=== PATIENT | male | born 1950 | race Caucasian/White ===

== ENCOUNTER → 2022-11-17 11:44 | Outpatient (CLI) | payer MEDICARE, OTHER, SELFPAY ==
[2022-11-17 13:32] LABS: Appearance Urine UA SL CLOUDY; Bilirubin Urine UA NEGATIVE (NEGATIVE); Color Urine UA YELLOW; Glucose Urine UA NEGATIVE (Negative); Ketones Urine UA TRACE (NEGATIVE); Leukocyte Esterase Urine UA 2+ (NEGATIVE); Nitrite Urine UA NEGATIVE (Negative); Occult Blood Urine UA 1+ (Negative); Protein Urine UA NEGATIVE (Negative); Urobilinogen Urine UA 0.2 E.U./dL (0.2)
[2022-11-17 13:49] LABS: Bacteria Urine Few (2-10); Culture Indicated Urine Specimen Cultured; RBC Urine 0-1/HPF (0-5/HPF); Squamous Epithelial Cell Urine 0-1 /HPF (0-5/HPF); WBC Urine >100/HPF (0-5/HPF)
[2022-11-17 14:38] LABS: Add Manual Diff / Slide Review NO; Basophils Absolute Auto 0 /uL (0-100); Basophils Percent Auto 0.9 % (0-2); Eosinophils Absolute Auto 100 /uL (0-450); Eosinophils Percent Auto 3.1 % (2-4); Hematocrit 38.9 % (41-53); Hemoglobin 13.5 g/dL (13.5-17.5); Lymphocytes Absolute Auto 900 /uL (1100-4500); Lymphocytes Percent Auto 24.3 % (25-40); Mean Corpuscular HGB Conc 34.7 % (30-36); Mean Corpuscular Volume 100.9 fL (80-100); Monocytes Absolute Auto 500 /uL (0-900); Monocytes Percent Auto 13.4 % (3-14); Neutrophils Absolute Auto 2100 /uL (1500-7000); Neutrophils Percent Auto 58.3 % (50-75); Platelet Count 145 X10^3/uL (150-400); Red Blood Cell Count 3.86 X10^6/uL (4.5-5.9); White Blood Cell Count 3.6 X10^3/uL (4.5-11.0)
[2022-11-17 14:58] LABS: Alanine Aminotransferase 20 IU/L (<50); Albumin 4.1 g/dL (3.5-5.0); Albumin Globulin Ratio 1.9 (1.0-2.8); Alkaline Phosphatase 56 U/L (38-126); Aspartate Aminotransferase 29 IU/L (17-59); BUN Creatinine Ratio 19.4 (6-22); Bilirubin Total 0.7 mg/dL (0.2-1.3); Blood Urea Nitrogen 24 mg/dL (9-20); Calcium 9.6 mg/dL (8.4-10.2); Carbon Dioxide 23 mmol/L (22-32); Chloride 105 mmol/L (98-107); Estimated Glomerular Filt Rate > 60 mL/min (>60); Globulin 2.2 g/dL (1.7-4.1); Glucose 81 mg/dL (80-110); HEMOLYSIS < 15 (0-50); Potassium 4.2 mmol/L (3.4-5.1); Sodium 137 mmol/L (137-145); Total Protein 6.3 g/dL (6.3-8.2)
[2022-11-17 16:17] LABS: Erythrocyte Sedimentation Rate 7 MM/HR (0-15)
[2022-11-18 07:43] LABS: Labcorp Hemoglobin (Hb) A1c 4.9 % (4.8-5.6)
== END ==
PROVIDERS: PCP Internal Medicine Hematology & Oncology; Referring Provider Orthopaedic Surgery; Visit Provider Orthopaedic Surgery
DX: Z01.818 Encounter for other preprocedural examination (principal); R73.9 Hyperglycemia, unspecified; Z01.812 Encounter for preprocedural laboratory examination; N39.0 Urinary tract infection, site not specified; C83.18 Mantle cell lymphoma, lymph nodes of multiple sites
CPT/HCPCS: 36415; 80053; 81001; 83036; 85025; 85651; 87086; 93005

== ENCOUNTER 2022-12-09 06:31 | Day surgery (SDC) | payer MEDICARE, OTHER, SELFPAY ==
[2022-11-25 08:26] VITALS: BMI 30.7
[2022-12-09] VITALS (11 sets, daily range): BP systolic 106–153; BP diastolic 63–97; PULSE 55–99; RESP 12–18; TEMP 35.9–36.1; O2SAT 95–99; BMI 30.7
--- NOTE | 2022-12-09 | PATH_ITS ---
[facility] Accession Number: [id number] No. of containers..01 Tissue . 01 Material submitted: . femur - RIGHT FEMUR . 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 - Fatty marrow with scant hematopoetic elements (see comment). MRV 12/14/2022 1613 Local . 01 Comment: The hematopoietic elements show a decreased myeloid/erythroid ratio, which may be related to anemia or hemorrhage. This case is also reviewed by hematopathologist, Dr. Luli Jack, who concurs with the given interpretation. . 01 Electronically signed: . Donna Shirley MD, Pathologist NPI- [id number] . 01 Gross description: . The specimen is received in formalin labeled with the patient's name, , and RT femur and consists of multiple fragments of elizalde friable osseous tissue, aggregating to 2.9 x 2.8 x 0.9 cm. Filtered and submitted entirely in cassettes A1-A3, following decalcification in Immunocal. ([id number]) /[facility] 12/10/2022 1544 Local . 01 Pathologist provided ICD-10: M87.051 . 01 CPT . 506777, [id number] Specimen Comment: A courtesy copy of this report has been sent to [phone] Performed at: 01 [facility], [facility] [address] [place] [address], [employer], [place] [id number] MD Marty Bucio MD Phone: [phone]
--- NOTE | 2022-12-09 06:00 | DI.RAD.S_ITS ---
PROCEDURE: XR HIP W PEL IF DONE RT 2V INDICATIONS: inner op TECHNIQUE: 2 views of the hip were acquired. COMPARISON: None. FINDINGS: Fluoroscopic guidance a right total hip arthroplasty placement. IMPRESSION: Fluoroscopic guidance. Dictated by: Sterling Cochran M.D. on 12/09/2022 at 11:51 Approved by: Sterling Cohcran M.D. on 12/09/2022 at 11:51
[2022-12-09] MEDS: ACETAMINOPHEN 325 MG TABLET 975 MG PO (06:49)
[2022-12-09] MEDS: CELECOXIB 200 MG CAPSULE PO (06:50)
[2022-12-09] MEDS: VANCOMYCIN 1,000 MG/200 ML PIGGYBACK 200 MG IV (06:50)
[2022-12-09] MEDS: PREGABALIN 75 MG CAPSULE PO (06:50)
[2022-12-09] MEDS: LACTATED RINGERS 1,000 ML 42 ML IV ×2 (06:50→09:28)
--- NOTE | 2022-12-09 07:45 | P.OP_ITS ---
Operative Date/Time/Diagnoses Date of procedure: 12/09/22 Time of procedure: 08:20 Pre-op diagnosis: right hip AVN Post-op diagnosis: same Procedure & Clinicians Procedure: Right total hip arthroplasty anterior approach, biopsy right proximal femur Same procedure as scheduled: Yes Indications: The patient has had progressively worsening right hip pain with radiographic changes consistent with arthritis. Non-operative management has failed and the patient has requested total hip replacement. The risks, benefits and alternatives to surgery were discussed with the patient prior to proceeding. Risks discussed included, but were not limited to, failure to relieve pain, leg length discrepancy, dislocation, stiffness, infection, nerve damage, deep venous thrombosis, pulmonary embolism, stroke, coma, heart attack, permanent paralysis and , as well as the potential need for eventual revision of the prosthetic. Surgeon: Mariposa Shah Investor Relations Coordinator: Jennifer Dobbs Anesthesia Type: General and Spinal Operative Notes Findings: Severe right hip osteoarthritis, biopsy sent of intramedullary canal contents, soft bone in the femur Closure Type: primary Specimen(s): none sent Prosthetic devices, grafts, tissues, transplants, or devices: Shah and nephew R3 58, neutral poly liner,two 6.5 mm screws, size 6 polar stem with collar, 36 by +0 cobalt chromium head Estimated Blood Loss (mL): 250 Blood products transfused: none Procedure in detail: The patient was brought to the operating room. Patient was carefully positioned in the supine position. Time-out was performed and antibiotics were given. Anesthesia was induced. He was positioned in the on the table in order to allow hyperextension of the hip. The right lower extremity was prepped and draped in a standard sterile fashion. An anterior right hip incision was made 1 fingerbreadth lateral to the anterior superior iliac spine and extended distally towards the greater trochanter. Dissection was carried out through skin and subcutaneous tissues. Superficial hemostasis was achieved. The fascia over the tensor fascia zhang was defined and incised with a knife. Two Allis clamps were used to grasp the fascia. Tensor fascia zhang was retracted laterally. A gelpi retractor was placed. Dissection was carried out down along the neck. The circumflex vessels were carefully identified and cauterized with the Aqua Mantis. A PA was used throughout the procedure and was essential for intraoperative retraction and establishing appropriate hemostasis. They were used to help retract the femur in order to avoid injury to the proximal femur. There was good visualization of the femoral neck. A Cobra was placed superior to the neck and the gluteus fibers were carefully stripped from that superior aspect of the capsule. A 2nd retractor was placed along the inferior aspect of the neck. The rectus insertion along the capsule was partially released. A 3rd retractor that was then gently placed over the rim of the acetabulum under the rectus. Capsule was carefully incised and released from the intertrochanteric line circumferentially superior to the mid sagittal line and inferiorly to the mid sagittal line until the lesser trochanter was palpable. A tag stitch was placed both in the superior and inferior limb of the capsular insertion. Along the acetabulum capsule was also released up to the mid sagittal 12:00 position. A portion of the labrum was resected. A saw was used to perform an osteotomy at the level of the intertrochanteric line and the junction of the superior femoral neck leaving approximately 1 finger breath of residual inferior neck above the lesser trochanter. A 2nd cut was made along the femoral neck at the base of the head and a napkin ring of neck was removed. Corkscrew was placed in the femoral head and the head was removed without difficulty. Retractors were then repositioned around the acetabulum. Residual labrum was resected and additional osteophytes were removed. A reamer that was 4 mm below the templated size was placed by hand in the acetabulum and it was reamed to centralize the acetabulum. It was then reamed up to 2 under the templated size. I reamed 1 under the anticipated size. A trial cup was placed and noted that it was appropriately sized and fluoroscopy confirmed position and depth. The component was open and inserted without difficulty fluoroscopic imaging was used to confirm that the cup had been adequately seated and was well positioned. It was further stabilized with 2 screws. Neutral poly liner was placed. The cup was tested and noted to be stable. Attention was then directed to the femur. The femur was gently hyperextended additional capsular release was performed as needed in order to allow adequate visualization of the proximal femur with elevation of the femur. Patient was placed in a hyperextended slightly adducted position with maximum external rotation. Box osteotome was used to check for any residual neck as well as sclerotic bone along the trochanter. A biopsy was then taken of the intramedullary canal contents and sent for pathology. There was softening of the femoral canal tissue and the patient has a history of cancer and previous stem cell transplant. [place] pepper was placed in the femur. Additional broaching was performed. Canal finder was used to determine the alignment of the canal and position. Size 1 broach was placed. The canal was then appropriately broached up to the templated size as long as there was adequate stability of the broach and serial advancement of the broach without excessive impingement. Specific attention was directed at avoiding varus attempting to direct the distal aspect of the broach more anteriorly and avoiding excessive anteversion. Trial reduction showed acceptable range of motion, good stability, no posterior impingement, anabaptism of leg length and appropriate lateral shuck. I also hyperflexed the hip and checked that there was no impingement anteriorly and there was good stability with flexion, adduction and internal rotation. Marcaine and Exparel were injected. The stem was placed without difficulty. Repeat trial reduction and x-ray showed acceptable overall position, length, and no evidence of the femoral fracture. Final head was placed. Wound was meticulously irrigated with normal saline. The hip was reduced and additional Exparel and Marcaine were injected. The capsule was closed with interrupted nonabsorbable sutures. The fascia of the tensor was closed with interrupted and running Vicryl. No drain was placed. Any tensor fascia zhang muscle that appeared to be contused or injured which was a minimal amount was carefully resected. Capsule around the tensor was injected with Exparel and Marcaine. The skin was closed with barbed stitches for the subcutaneous tissue and skin. We also used surgical glue. The wound was dressed sterilely. Brief Betadine soak was also used and was meticulously irrigated with normal saline. Patient was transferred to recovery room in satisfactory condition. Complications: none Post-operative Condition: stable Disposition: Acute Care Plan for aftercare: The patient will be maintained on a standard total hip replacement protocol with weight bearing as tolerated and anterior hip precautions. The patient will receive Aspirin and sequential compression devices for DVT prophylaxis. The patient will be discharged home when safe for the home environment.
--- NOTE | 2022-12-09 07:45 | PM.PREOP ---
Pre-operative Note Interval Note History & Physical reviewed/Exam performed by Physician: Yes Changes to H&P: No
[2022-12-09] MEDS: CEFAZOLIN 2 GM/100 ML PREMIX 100 ML IV ×3 (08:10→23:42)
--- NOTE | 2022-12-09 08:36 | SUR.OPER ---
Patient supine on padded Randolph table, one arm on padded arm board at <90, other arm padded and secured with tape across patient's chest, both legs secured in padded traction boots and positioned per surgeon, padded post at patient's groin, pressure points checked and padded.
[2022-12-09] MEDS: BUPIVACAINE 0.25% (PF) 60 ML, EPINEPHrine 0.3 MG INJ (08:40)
[2022-12-09] MEDS: BUPIVACAINE LIPOSOME 266 MG/20 ML VIAL INJ (08:40)
[2022-12-09] MEDS: TRANEXAMIC ACID 1,000 MG VIAL 1000 MG INJ ×2 (08:41→10:48)
--- NOTE | 2022-12-09 11:30 | DI.RAD.S_ITS ---
PROCEDURE: XR HIP W PEL IF DONE RT 2V INDICATIONS: POST OP RIGHT ANTERIOR HIP TECHNIQUE: AP pelvis and lateral view of the right hip acquired. COMPARISON: [facility], [place], XR HIP W PEL IF DONE RT 2V, 12/09/2022, 9:41. FINDINGS: Bones: Patient is status post right hip arthroplasty, with hardware components in expected positions. The hip joint appears congruent. The visualized bony structures appear intact. Soft tissues: Overlying postoperative changes are noted. No suspicious soft tissue densities. IMPRESSION: Expected postoperative appearance of a right total hip arthroplasty. Dictated by: Sterling Cochran M.D. on 12/09/2022 at 11:58 Approved by: Sterling Cochran M.D. on 12/09/2022 at 11:58
[2022-12-09] MEDS: HYDROMORPHONE 2 MG INJ IV ×2 (11:45→11:54)
[2022-12-09] MEDS: ACETAMINOPHEN 325 MG TABLET 650 MG PO ×2 (13:21→18:13)
[2022-12-09] MEDS: IBUPROFEN 400 MG TABLET PO ×3 (13:21→20:09)
[2022-12-09] MEDS: LACTATED RINGERS 1,000 ML 100 ML IV (13:22)
--- NOTE | 2022-12-09 15:23 | PT-IP ANOTE ---
PT reviewed chart and checked on pt to initiate same day eval post-op anterior THR. PT awakens pt after clearing with nsg and pt states that he would like to wait until the morning before getting OOB/working with PT. Will con't efforts tomorrow morning.
[2022-12-09] MEDS: OXYCODONE IR 5 MG TABLET PO (16:46)
[2022-12-09] MEDS: DOCUSATE 100 MG CAPSULE PO (20:09)
[2022-12-09] MEDS: ASPIRIN EC 81 MG TABLET PO (20:09)
[2022-12-09] MEDS: PANTOPRAZOLE DR 40 MG TABLET PO (20:09)
[2022-12-09] MEDS: OXYCODONE IR 10 MG TABLET PO (23:39)
[2022-12-10] MEDS: ACETAMINOPHEN 325 MG TABLET 650 MG PO ×5 (00:02→23:47)
[2022-12-10] MEDS: IBUPROFEN 400 MG TABLET PO ×7 (00:03→23:47)
[2022-12-10 05:33] VITALS: BP 123/70; PULSE 62; RESP 20; TEMP 36.2; O2SAT 96
[2022-12-10 06:00] LABS: Hematocrit 32.2 % (41-53); Hemoglobin 11.4 g/dL (13.5-17.5)
[2022-12-10] MEDS: OXYCODONE IR 10 MG TABLET PO ×4 (06:06→23:47)
--- NOTE | 2022-12-10 07:24 | PM.PNPO.1 ---
Subjective Subjective Date Patient Seen: 12/10/22 Time Patient Seen: 07:25 Interval history: Pt sitting up in bed, c/o incisional pain. Has not been OOB yet, declined work w/ PT yesterday. Has 15 steps to get into his home and does not anticipate being able to discharge directly to home because of this. Eating and voiding without difficulty. Exam Vital Signs (past 8 hours): - 12/10/22 05:33 Temperature 97.2 F L Pulse Rate 62 Respiratory Rate 20 Blood Pressure 123/70 Pulse Oximetry 96 Oxygen Flow Rate 0 Oxygen Delivery Method Room Air Oxygen Flow Rate 0 Narrative Exam Narrative: 5/5 strength in hip flexors, quadriceps, hamstrings, DF, PF, EHL on right. Sensation to light touch intact throughout RLE. Calf soft, compressible, nontender. Aquacel dressing CDI. Objective Labs 12/10/22 05:25 Labs: Laboratory Results - last 24 hr 12/10/22 05:25 Hgb 11.4 L Hct 32.2 L PFSH Medical History (Updated 12/10/22 @ 07:26 by Jeanne Zafar PA-C) Anesthesia Atrial flutter BCC (basal cell carcinoma), chest Easy bruisability Enlarged prostate GERD (gastroesophageal reflux disease) History of COVID-19 (2021) HTN (hypertension) Implantable loop recorder present (2018) Non-Hodgkin lymphoma in remission (~2017) Surgical History (Updated 12/10/22 @ 07:26 by Jeanne Zafar PA-C) H/O vasectomy History of urologic surgery (08/23/22) Hx of arthroscopy of left knee Hx of arthroscopy of right knee 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 Continue multimodal pain control, ASA BID and SCDs for VTE prophylaxis. (2) Acute postoperative anemia due to expected blood loss: Assessment and Plan narrative: Asymptomatic at this time, no intervention necessary. Postoperative Procedures: Procedures Operation Date: 12/09/22 07:45 Actual Procedure Side Surgeon p Total Hip Arthroplasty/Anterior Approach Right Mariposa Shah MD Postoperative day: 1 Quality VTE Deep Vein Thrombosis/Pulmonary Embolism Present on Admission: No
[2022-12-10 08:02] VITALS: BP 120/65; PULSE 66; RESP 17; TEMP 36.6; O2SAT 97
[2022-12-10] MEDS: ASPIRIN EC 81 MG TABLET PO ×2 (09:18→20:49)
[2022-12-10] MEDS: LORATADINE 10 MG TABLET PO (09:19)
[2022-12-10] MEDS: FAMOTIDINE 20 MG TABLET PO (09:20)
[2022-12-10] MEDS: DOCUSATE 100 MG CAPSULE PO ×2 (09:20→20:49)
[2022-12-10] MEDS: OXYCODONE IR 5 MG TABLET PO (10:53)
--- NOTE | 2022-12-10 12:48 | OT.IP.EVAL ---
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) Presence of unspecified artificial hip joint (12/09/22) Surgery Performed Operation Date: 12/09/22 07:45 Actual Procedures p Total Hip Arthroplasty/Anterior Approach(Right) - Mariposa Shah MD Past Medical History (Last Updated 11/25/22 @ 09:46 by Chantell Salas, RN) Anesthesia Atrial flutter BCC (basal cell carcinoma), chest Easy bruisability Enlarged prostate GERD (gastroesophageal reflux disease) History of COVID-19 (2021) HTN (hypertension) Implantable loop recorder present (2018) Non-Hodgkin lymphoma in remission (~2017) Surgical History (Last Updated 11/25/22 @ 09:22 by Chantell Salas RN) H/O vasectomy History of urologic surgery (08/23/22) Hx of arthroscopy of left knee Hx of arthroscopy of right knee 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 Mobility and Gait Pt was IND in all mobility at baseline but often used a SPC with Mod I d/t hip and back pain. Activities of Daily Living and IADL's Pt was IND in all ADLs at baseline. Social History Household Members spouse Living Arrangements Apartment/Condo Number of Floors (Floors) One Floor Number of Stairs To Enter/Railing? 6 steps, landing, 6 steps, landing, 3 steps all with rail on L assending. 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 M2 OT-IP Current Condition Start: 12/10/22 12:52 Freq: Status: Active Protocol: Document 12/10/22 12:52 CGR (Rec: 12/10/22 13:03 CGR [id number]) Occupational Therapy Current Condition Current Condition Evaluation Date 12/10/22 Treatment Diagnosis R DAHLIA anterior. Diagnosis Onset Date 12/09/22 Post Operative Precautions Anterior Hip Precautions No Hip Extension,No Hip External Rotation Weight Bearing Status Weight Bearing Status Weight Bear as Tolerated M3 OT- IP Subjective and Pain Start: 12/10/22 12:52 Freq: Status: Active Protocol: Document 12/10/22 12:52 CGR (Rec: 12/10/22 13:03 CGR [id number]) OT- Subjective Occupational Therapy Visit Type Type Initial Evaluation Visit Start Time 12:10 Visit Stop Time 12:48 Total Visit Minutes 38 Occupational Therapy Visit Comments Patient Comments I haven't been out of the bed yet. OT Pain Assessment Pain When Pain Assessed During Mobility Pain Present Pain Present Pain Reported Location Right Hip Intensity 3 Scale Used Numeric (0 - 10) Management Techniques Distraction,Modification of Treatment,Re-positioning M4 OT- IP ADL's Start: 12/10/22 12:52 Freq: Status: Active Protocol: Document 12/10/22 12:52 CGR (Rec: 12/10/22 13:03 CGR [id number]) OT [id number] General Evaluation Self-Feeding Ability Independent Comments OT Self-Feeding Comments Pt eating lunch at end of session. OT ADL-Grooming General Evaluation Grooming Ability Independent Areas Needing Assistance Face Washing Comments OT Grooming Comments standing at sink OT ADL-Oral Care General Eval Oral Care Ability Independent Areas of Assistance Brushing Teeth Comments Oral Care Comments standing at sink OT ADL-Dressing General Eval Lower Body Dressing Ability Standby Assistance Areas Needing Assistance Underpants/Brief,Socks Assistive Devices Dressing Assistive Devices Pewter Fabricator,Sock Aid Comments OT Dressing Comments Demonstration of DME provided and pt was able to use DME to doff and don socks and underwear. OT ADL-Toileting General Evaluation Toileting Ability Standby Assistance Comments OT Toileting Comments sitting on toilet OT ADL-Bathing Comments OT Bathing Comments not performed M5 OT- IP IADL's Start: 12/10/22 12:52 Freq: Status: Active Protocol: Document 12/10/22 12:52 CGR (Rec: 12/10/22 13:03 CGR [id number]) OT-Instrumental Activities of Daily Living Deficits IADL Deficits Identified No Deficits Home Safety Awareness Awareness of Need for Assistance at Home Good Awareness Ability to Problem Solve Emergency Able to Problem Solve Situations Medication Management Medication Management No Deficits Identified Money Management Money Management No Deficits Identified Meal Preparation Meal Preparation Caregiver Provides Assist End Stapler End Stapler Caregiver Provides Assist M6 OT- IP Functional Cognition Start: 12/10/22 12:52 Freq: Status: Active Protocol: Document 12/10/22 12:52 CGR (Rec: 12/10/22 13:03 CGR [id number]) Cognitive Factors Limiting Selfcare Function Cognitive Ability Level of Alertness Alert Patient Orientation Name,Age,Birthday,Month,Date, Year,Day of Week,Place, Situation Attention Span Ability Capable of Focused Attention, Capable of Sustained Attention Ability to Follow Commands Able to Follow One Step Commands with Increased Time, Able to Follow One Step Commands with Repetition OT- Vision and Hearing OT- Hearing Assessment OT- Hearing Assessment WFL OT- Vision Assessment Visual Acuity Glasses For Reading Visual Attentiveness WFL Occular Pursuits WFL M7 OT- IP Mobility and Balance Start: 12/10/22 12:52 Freq: Status: Active Protocol: Document 12/10/22 12:52 CGR (Rec: 12/10/22 13:03 CGR [id number]) OT- Bed Mobility Assessment Supine to Sit Supine to Sit Assist Standby Assistance Scooting Scooting to Edge of Bed Standby Assistance OT-Transfer Assessment Sit to and From Stand Sit to and from Stand Standby Assistance Transfers Transfer Ability Standby Assistance Technique Transfer Destination Bed,Chair,Toilet Transfer Technique Stand Step Pivot Devices Transfer Assistive Devices Gait Belt,Front Wheeled Walker Comments Mobility Comments Pt mobilized from the bed to the toilet to the sink and then to the chair for LB dressing training and lunch. OT- Gait Assessment Gait Gait Assistance Required: Standby Assistance Assistive Devices Assistive Device Gait Belt,Front Wheeled Walker Comments Gait Ability Comments mobility around the room OT- Balance Assessment Sitting Balance and Reactions Static Sitting Balance Ability Normal Dynamic Sitting Balance Ability Normal M8 OT- IP Objective Assessments Start: 12/10/22 12:52 Freq: Status: Active Protocol: Document 12/10/22 12:52 CGR (Rec: 12/10/22 13:03 CGR [id number]) OT Gross Range of Motion Upper Extremity Range of Motion Assessment Within Functional Limits OT Strength Upper Extremity Strength Assessment Within Functional Limits OT- Coordination Assessment Upper Extremity Finger to Nose Test Within Functional Limits Finger Tapping Test Within Functional Limits OT-Muscle Tone Assessment Muscle Tone WNL Yes OT Sensation Assessment Edema Edema Absent M9 OT- IP Assessment and Plan Start: 12/10/22 12:52 Freq: Status: Active Protocol: Document 12/10/22 12:52 CGR (Rec: 12/10/22 13:03 CGR [id number]) OT Summary Assessment and Plan Potential Rehabilitation Potential Excellent Analytic Complexity at Evaluation Low Summary OT Impairments Pain,Balance,Functional Mobility,Grooming,Dressing, Toileting,Bathing,Toilet Transfers,Shower Transfers, Activity Tolerance Progress Towards Goals Progressing Toward Goals Assessment Summary Pt presents as a low complexity evaluation s/p admit for R DAHLIA. Pt performed all mobility and ADLs with SBA on this date and is likely to be safe for discharge home with support from his if he is able to manage the stairs into their apartment. Pt states that his back up plan for the stairs is to go to SNF. Goals Self-Feeding Goal Independent Grooming Goal Independent Dressing Goal Independent Toileting Goal Independent Bathing Goal Independent Toilet Transfer Goal Independent Shower Transfer Goal Independent Days to Meet Goals 3 Frequency of Treatment Frequency Of Treatment Once a Day Treatment Plan OT Treatment Plan ADL Training,Functional Mobility,Patient/Family Education,Discharge Planning Other Treatment Recommendations and Next shower Treatment Focus Discharge Recommendations OT Discharge Recommendations Home with Assistance Other Discharge Recommendations Home if he can perform 15 steps. Transportation Needs at Discharge Private Vehicle
--- NOTE | 2022-12-10 14:00 | PT.IIE ---
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) Hx of hernia repair (~2012) Hx of kyphoplasty (~2018) Medical History (Last Updated 11/25/22 @ 09:46 by Chantell Salas RN) Anesthesia Atrial flutter BCC (basal cell carcinoma), chest Easy bruisability Enlarged prostate GERD (gastroesophageal reflux disease) History of COVID-19 (2021) HTN (hypertension) Implantable loop recorder present (2018) Non-Hodgkin lymphoma in remission (~2017) Physical Therapy Inpatient Evaluation/Re-Eval M1 PT/OT-IP Prior Functional Status Start: 12/10/22 16:02 Freq: NEEDED Status: Active Protocol: Document 12/10/22 14:00 AB (Rec: 12/10/22 16:21 AB [id number]) Medical Review Prior Functional Status Medical History Reviewed Yes Communication able to make needs known Mobility and Gait pt stated that he is modified independent with all mobilities and ambulation using SPC Activities of Daily Living and IADL's Pt was IND in all ADLs at baseline. Social History Household Members spouse Living Arrangements Apartment/Condo Number of Floors (Floors) Two Floors Number of Stairs To Enter/Railing? 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 M2 PT-IP Current Condition Start: 12/10/22 16:02 Freq: NEEDED Status: Active Protocol: Document 12/10/22 14:00 AB (Rec: 12/10/22 16:21 AB [id number]) Physical Therapy Current Condition Current Condition Evaluation Date 12/10/22 Treatment Diagnosis s/p R DAHLIA anterior approach; difficulty in walking Onset Date 12/09/22 M3 PT-IP Subjective Start: 12/10/22 16:02 Freq: NEEDED Status: Active Protocol: Document 12/10/22 14:00 AB (Rec: 12/10/22 16:21 AB [id number]) Subjective Physical Therapy Visit Type Type Initial Evaluation Visit Start Time 14:00 Visit Stop Time 15:11 Total Visit Minutes 71 Number of DIRECTOR CALL CENTER SALES Visits 0 Physical Therapy Visit Comments Patient Comments agreeable to do PT Therapy Pain Assessment Pain When Pain Assessed During Mobility Location Right Hip Scale Used pain scale not stated Pain Management Techniques Distraction,Modification of Treatment,Re-positioning, Timing of Activity with Medications M4 PT-IP Mobility and Gait Start: 12/10/22 16:02 Freq: NEEDED Status: Active Protocol: Document 12/10/22 14:00 AB (Rec: 12/10/22 16:21 AB [id number]) PT-Bed Mobility Assessment Supine to Sit Supine to Sit Standby Assistance Sit to Supine Sit to Supine Standby Assistance PT-Transfer Assessment Sit to and From Stand Sit to and from Stand Standby Assistance,1 Person Assistance,Use of Upper Extremities Equipment Transfer Assistive Device Gait Belt,Front Wheeled Walker Orthotic/Prosthetic Devices or Brace: No Transfers Transfer Destination Bed Transfer Technique ambulated Transfer Ability Level of Assist Standby Assistance,1 Person Assistance,Use of Upper Extremities Comments Mobility Comments pt sitting on the chair and agreeable to do PT. educated on anterior hip precautions and pt needs cues to recall. pt stated that his outpt PT told him that he is not ready to do stair climbing until 1 wk after sx and that he might have to go to SNF. informed pt that this PT will assess mobility and will determine safe d/c plan. pt agreed. completed sit to stand from the chair SBA and ambulated in room ~ 20 ft using FWW SBA. sat on EOB and completed sit<> supine SBA. pt agreed to do stairs. ambulated in the hallway using FWW SBA to occasional CGA ~ 100 ft towards stairs. educated pt on stair climbing using L rail ascending. pt completed up/down step using L rail with L hand and completed CGA ascending and min A descending. showed pt how to do stairs holding on to L rail with B hands and ascending facing ~ 45 deg angle so that pt is not twisting. pt completed holding on to L rail with B hands SBA with initial cues but able to complete without cues on successive sets. completed x 4 sets. pt ambulated back towards his room ~ 125 ft using FWW SBA. able to maintain his precautions. assisted pt back to his room. pt requested to go back to the bed. ambulated from w/c to bed using FWW SBA. completed sit to supine SBA. positioned in bed. call light and table placed within reach. pt declined caregiver training . pt is aware of his precautions and stated that he is more comfortable doing the stairs and going home. Gait Assessment Gait Gait Assistance Required: Standby Assistance,Contact Guard Assist Distance (Feet) 125 Able to Maintain Weight Bearing Status Yes During Gait Assistive Devices Assistive Device Gait Belt,Front Wheeled Walker Orthotic/Prosthetic Devices or Brace: No Gait Deviations General Gait Pattern Decreased Stride Length, Decreased Feet Clearance Factors Limiting Gait Function Factors Limiting Gait Function Decreased Activity Tolerance, Decreased Strength,Difficulty Following Directions,Limited Range of Motion,Pain,Poor Balance,Poor Safety Awareness Stair Climbing Assessment Evaluation Level of Assist On Stairs Contact Guard Assistance,1 Person Assistance Devices Stair Climbing Assistive Devices Left Railing Technique/Endurance Stair Climbing Direction Ascend and Descend Stair Climbing Technique Step to Step Number of Steps Climbed 3 Query Text: Stair Climbing Set # Repetitions (reps) 4 PT-Balance Assessment Sitting Balance and Reactions Static Sitting Balance Ability Normal Dynamic Sitting Balance Ability Normal Standing Balance and Reactions Static Standing Balance Ability Good Dynamic Standing Balance Ability Fair Device Used FWW M5 PT-IP Objective Assessments Start: 12/10/22 16:02 Freq: NEEDED Status: Active Protocol: Document 12/10/22 14:00 AB (Rec: 12/10/22 16:21 AB [id number]) Orientation Orientation/Cognition Level of Alertness Alert Orientation Name,Place,Situation Language Function Ability No Deficits Noted Safety Awareness Understands Safety Issues Memory Description No Deficits Noted Gross Range of Motion Lower Extremity ROM Assessment Within Functional Limits Strength Lower Extremity Strength Assessment Right Impaired Hip 4-/5 Knee 4/5 Coordination Assessment Gross Coordination Gross Coordination WNL Sensation Assessment Sensation Gross Sensation WNL Muscle Tone Muscle Tone WNL Yes M6 PT-IP Treatment Start: 12/10/22 16:02 Freq: NEEDED Status: Active Protocol: Document 12/10/22 14:00 AB (Rec: 12/10/22 16:21 AB [id number]) Physical Therapy Treatment Education Education Provided Precautions,Weight Bearing Status,Post-Op Packet,Safety M7 PT-IP Assessment and Plan Start: 12/10/22 16:02 Freq: NEEDED Status: Active Protocol: Document 12/10/22 14:00 AB (Rec: 12/10/22 16:21 AB [email or web address]) PT Summary Assessment and Plan Potential Rehabilitation Potential Good Status of Condition at Evaluation Stable Summary Impairments Pain,ROM,Strength,Balance, Coordination,Sensation,Tone, Cognition,Bed Mobility, Transfers,Gait,Activity Tolerance Assessment Summary pt s/p R DAHLIA anterior approach POD 1. pt requiring SBA to CGA with mobility using FWW. pt will have his spouse to assist him at home. pt declined caregiver training but was only needing SBA and occasional CGA with mobility and stated that he can direct his spouse on how to assist him if needed. pt able to maintain his hip precautions and did not have any LOB during mobility. pt may go home when medically stable. will need outpt PT Goals Bed Mobility Goal Independent Transfer Goal Independent,Front Wheeled Walker Gait Goal Independent,Front Wheel Walker Gait Distance 300 Other Goals up/down 15 steps L rail SBA Days to Meet Goals 5 Frequency of Treatment Frequency Of Treatment Twice a Day Treatment Plan Physical Therapy Treatment Plan Bed Mobility Training,Transfer Training,Gait Training, Therapeutic Exercise,Balance Retraining,Post Op Education, Discharge Planning,Hot or Cold Pack,Neuromuscular Re-ed, Coordination Retraining,Manual Therapy Precautions Anterior Hip Precautions No Hip Extension,No Hip External Rotation Weight Bearing Status Weight Bearing Status Weight Bear as Tolerated Allowed Weight Bearing Amount (enter % RLE WBAT or #) (%) Recommendations To Nursing Amount of Assist Needed 1 Person Assist Discharge Recommendations PT Discharge Recommendations Home with Assistance, Outpatient PT Transportation Needs at Discharge Private Vehicle
[2022-12-10 14:58] VITALS: BP 118/68; PULSE 70; RESP 16; TEMP 36.8; O2SAT 98
--- NOTE | 2022-12-10 16:23 | CM.DANOTE ---
Patient is a 72 yo male who was admitted on 12/09/22 for RTHA. Pt has M[place] and [place] for insurance and his PCP is Bal Canas. EMR was reviewed. Per Ortho, pt tolerated procedure well and pending PT/OT likely could d/c home but no discharge orders yet. Per PT/OT, recommending safe d/c home with outpt PT and completed stairs as pt has 15 steps to enter. SW met bedside and explained role and pt confirms he lives in [place] in a condo with his spouse and is active and independent at baseline and drives. Pt denies any hx of HH or SNF and states he was worried he would have to go to SNF (insurance currently wouldn't cover anyways) but states Dr. Shah already made a referral to HH in case needed and HH keeps calling to see when he will discharge. Pt states his preference is to d/c home and confirms spouse will provide transport tomorrow and he would rather do his established outpt PT if he can manage his stairs once he gets home. If he cannot manage his stairs well, then pt plans to contact the HH agency that is set up and do HH. Plan: SW to follow in the AM for plan of discharge home via spouse POV and outpt PT. OBINNA Tineo Discharge Planning/Care Management CM Discharge Assessment Start: 12/10/22 16:22 Freq: Status: Active Protocol: Document 12/10/22 16:22 BF (Rec: 12/10/22 16:23 BF [id number]) Discharge Planning Assessment Assigned Certified Emergency Vehicle Technician OBINNA Dyer DPOA/Assigned Designee Name informally spouse Advance Directives? Yes Advance Directives on File No History Provided By Patient,Medical Record Has Patient been admitted in last 30 No days? Prior Living Arrangements Apartment/Condo Household Members spouse Type of transporation used prior to Drives own vehicle admit Independent with ADL's Yes Is patient alert and oriented? Yes Caregiver for Another No Community Services used prior to Physical Therapy admission: DME Already Rented / Owned FWW / Walker Patient/Family Preference OP PT Therapy Barriers to Discharge No Discharge Plan Home Community Services Physical Therapy Transportation Arrangement Spouse to provide transport Referrals Initiated None needed Whiteboard Updated in Patient Room with Yes name and ext. # of Certified Emergency Vehicle Technician Review Status In Process Please Provide Date Initial DC 12/10/22 Assessment Was Performed Next Review Type Continued Stay Review Pre-Anesthesia Assessment Start: 11/25/22 08:26 Freq: Status: Active Protocol: Document 11/25/22 08:26 [facility] (Rec: 11/25/22 10:01 [facility] [id number]) Pre-Anesthesia Assessment Preferred Name Cristian Patient Information Reviewed Via Phone Assessment Assessment Completed With Patient Diagnostic Results BMP/CMP,CBC,EKG,Urinalysis Comment Labs/EKG @ [facility] 11/17/22 Primary Care Provider Bal Canas Seen Specialist in Last 12 Months Yes Specialist Seen Oncologist,Orthopedist, Urologist Primary Language Czech Cooperative Manager Required No Height 180.34 cm Weight 99.79 kg Body Mass Index (BMI) 30.7 Hearing Ability Normal Visual Assist Magnifying Glass Dentition Type Teeth, Natural Present Barriers to Learning None Hx Anesthesia Reactions No Hx Family Anesthesia Reaction No Hx Malignant Hyperthermia No Hx Blood Transfusions Yes: With Stem cell transplant Hx Blood Transfusion Reaction No Anesthesia Review Requested Yes: Surgeon requested re: Multiple medical issues Sack Sewer Machine No alcohol intake current alcohol intake frequency 0-2 drinks per day Smoking Status Never smoker Substance Use Type does not use Pain Present Pain Reported Musculoskeletal Symptoms Abnormal Gait,Back Pain, Difficulty Walking,Joint Pain History of Falling (Recent or History of Yes ) Patient is completely paralyzed or No completely immobile Prosthesis or Orthotic Device Cane Mental Status Oriented to own ability Is patient on oxygen? No Does patient have FITZGERALD/SOB No Hx Sleep Apnea No Currently Taking a Beta [place] No Can You Climb a Flight of Stairs Without Yes SOB Hx Chest Pain No Hx SOB No Hx Syncope or Dizziness No Anti-Coagulant Therapy No Has a Offset Assistant Press Operator No Cardiac Testing No Hx Pacemaker/ICD No Pacemaker Rep Required? No Cardiac Clearance Received Not Applicable Comment Pt has a non-functioning loop recorder implanted - batter 07/2022 Diet Type At Home Regular Dysphagia No Gastrointestinal Symptoms Constipation,Reflux Chronic UTI No Bladder Pattern Nocturia Urinary Catheter Present No Hx Urinary Self Catheterization No Diabetes No Hx Drug Resistant Organism No Presence of External or Internal Medical Yes Devices Have you had any close contact with No someone diagnosed with COVID-19? Received a COVID vaccine? Yes Received all doses? Yes Marital Status Lives With spouse Current Living Arrangements Apartment/Condo Number of Floors (Floors) Two Floors Number of Stairs To Enter/Railing? 15 Support System Spouse Does the Patient Have Assistance After Yes Surgery Patient Discharge Plan Description [facility]dc Facility/Rehab Comment Pt advised 3 night length of stay per surgeon Feels Safe in Current Environment Yes Been Physically Hurt or Threatened By a No Person in Current Environment Do you have thoughts of harming yourself None or others? Are you currently considering suicide? No Do you have a plan to hurt yourself or No Plan others? Do You Have Any Spiritual Beliefs That No May Affect Your HC Choices? Do You Have Any Cultural Practices That No May Affect Your HC Choices? Comment [employer] Who Can We Speak to About Patient's Care Family, friends Identifying Code for Release of Patient Declines to issue Information Health Care Proxy/Next of Kin Amanda () Health Care Proxy Emergency Contact Name Amanda () Emergency Contact Advance Directives? Yes Advance Directives on File No Requested Patient Bring Advanced Yes Directives DOS Power of Rn Oncology Clinical Yes Power of Rn Oncology Clinical Name Amanda () Power of Rn Oncology Clinical PAC Instructions Durable medical equipment, Medications to take/avoid, Nasal antibiotic,No ETOH/ petroleum product on skin DOS, NPO,Pre-surgical wash,Sensory aids,Sturdy shoes/comfortable clothes,Do not bring valuables and remove jewelry
[2022-12-10 19:54] VITALS: BP 116/74; PULSE 69; RESP 17; TEMP 36.3; O2SAT 98
[2022-12-10] MEDS: PANTOPRAZOLE DR 40 MG TABLET PO (20:49)
[2022-12-11 05:15] VITALS: BP 111/63; PULSE 76; RESP 16; TEMP 36.1; O2SAT 96
[2022-12-11] MEDS: DOCUSATE 100 MG CAPSULE PO (08:26)
[2022-12-11] MEDS: ASPIRIN EC 81 MG TABLET PO (08:27)
[2022-12-11] MEDS: LORATADINE 10 MG TABLET PO (08:27)
[2022-12-11] MEDS: ACETAMINOPHEN 325 MG TABLET 650 MG PO (08:27)
[2022-12-11] MEDS: FAMOTIDINE 20 MG TABLET PO (08:27)
[2022-12-11] MEDS: IBUPROFEN 400 MG TABLET PO (08:27)
[2022-12-11 08:53] VITALS: BP 109/70; PULSE 97; RESP 18; TEMP 35.7; O2SAT 97
--- NOTE | 2022-12-11 09:01 | PT-IP ANOTE ---
Pt reports he has no PT needs and based off of yesterday feels confident he can do the stairs at home. Pt declined caregiver training.
--- NOTE | 2022-12-11 10:58 | PM.DS.1 ---
History of Present Illness History of Present Illness Chief complaint: OPB Narrative: Patient is up sitting in his chair this morning with at bedside. He is all dressed and eager to discharge to home this morning. He states that his pain has been well controlled with medication. Physical therapy went well and he is confident that he will be able to manage stairs to get into his condo. says they will have their son there for assistance up the stairs as well. Discharge Providers Provider Discharge Date: 12/11/22 Primary care physician: Bal Canas MD Consults: 12/09/22 06:00 Consult to Anesthesiology Routine Comment: Consulting Provider: Anesthesiologist Reason for consultation: Regional block for post operative pain control 12/09/22 12:42 Consult to Discharge Planning Routine Comment: Consult to Occupational Therapy Evaluate & Treat Comment: Physician Instructions: Evaluate and treat Consult to Physical Therapy Evaluate & Treat Comment: Physician Instructions: post op DAHLIA protocol Discharge provider: Jennifer Dobbs PA-C Summary Hospital Course Discharge Diagnosis: S/p right DAHLIA, anterior approach Hospital Course: Operative Date/Time/Diagnoses Date of procedure: 12/09/22 Time of procedure: 08:20 Pre-op diagnosis: right hip AVN Post-op diagnosis: same Procedure & Clinicians Procedure: Right total hip arthroplasty anterior approach, biopsy right proximal femur Same procedure as scheduled: Yes Indications: The patient has had progressively worsening right hip pain with radiographic changes consistent with arthritis. Non-operative management has failed and the patient has requested total hip replacement. The risks, benefits and alternatives to surgery were discussed with the patient prior to proceeding. Risks discussed included, but were not limited to, failure to relieve pain, leg length discrepancy, dislocation, stiffness, infection, nerve damage, deep venous thrombosis, pulmonary embolism, stroke, coma, heart attack, permanent paralysis and , as well as the potential need for eventual revision of the prosthetic. Surgeon: Mariposa Shah Market Research Specialist: Jennifer Dobbs Anesthesia Type: General and Spinal Operative Notes Findings: Severe right hip osteoarthritis, biopsy sent of intramedullary canal contents, soft bone in the femur Closure Type: primary Specimen(s): none sent Prosthetic devices, grafts, tissues, transplants, or devices: Shah and nephew R3 58, neutral poly liner,two 6.5 mm screws, size 6 polar stem with collar, 36 by +0 cobalt chromium head Estimated Blood Loss (mL): 250 Blood products transfused: none Status at Discharge Cognitive/behavioral status at discharge: at baseline, oriented Functional status at discharge: uses cane/walker Overall status at discharge: patient is progressing back to baseline Exam Vital Signs (past 8 hours): - 12/11/22 05:15 12/11/22 08:53 Temperature 96.9 F L 96.3 F L Pulse Rate 76 97 H Respiratory Rate 16 18 Blood Pressure 111/63 109/70 Pulse Oximetry 96 97 Oxygen Flow Rate 0 Oxygen Delivery Method Room Air Oxygen Flow Rate 0 Narrative Exam Narrative: Pleasant 72 year old male. AOx4. Intraoperative anterior right hip aquacel is CDI. Mild swelling and erythema to right hip surrounding bandage. Strength and sensation intact to bilateral low extremities. Calves soft, compressible, nontender to palpation. 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 WBAT with anterior hip precautions. Home health/outpatient PT. Continue multimodal pain control as needed. Follow up with orthopedics in 2 and 6 weeks. Aspirin 81 mg BID for DVT prophylaxis. Discharge Plan Discharge Plan Patient Disposition: Home Discharge orders & Medications Discharge Orders: Discharge (Order); Ordered 12/11/22 Ordered By: Jennifer Dobbs Prescriptions: New oxycodone 5 mg Tablet 5 mg PO Q4-6H PRN (Reason: Pain, Moderate (4-6)) Qty: 40 0RF acetaminophen 325 mg Tablet 650 mg PO Q6H Qty: 120 0RF aspirin 81 mg Tablet,Delayed Release (Dr/Ec) 81 mg PO BID Qty: 84 0RF docusate sodium 100 mg Capsule 100 mg PO BID Qty: 40 0RF Continued cetirizine 10 mg Tablet 10 mg PO DAILY prochlorperazine maleate 10 mg Tablet 10 mg PO BID PRN (Reason: Nausea) famotidine 20 mg Tablet 20 mg PO DAILY pantoprazole 40 mg Tablet,Delayed Release (Dr/Ec) 40 mg PO BEDTIME ibuprofen 200 mg Tablet 400 - 600 mg PO DAILY PRN (Reason: Pain) docusate sodium 100 mg Tablet 300 mg PO BEDTIME Follow up/Referrals: Bal Canas MD [Primary Care Provider] - Mariposa Shah MD [Physician] - As previously scheduled (Follow up with Ashley Dobbs on 12/21/2022 @ 4:30 at [facility] in [place].) Diet/Activity/Treatments Diet: Diet as Tolerated Activity: Weightbearing as tolerated to right leg. Anterior hip precautions. Cold/Heat Therapy: Ice to hip as needed for pain. Skin/Wound/Dressing Care Report to your healthcare provider any signs of infection, such as:: chills, fever, night sweats, unusual drainage and unusual redness Dressing: May shower. Leave dressing in place until follow up in office. No bathing or otherwise soaking incision. Call the office if the dressing becomes saturated inside. Visit Report/Discharge Packet Instructions: DI for Hip Replacement Stand Alone Forms: Patient Portal/API, Surgery Discharge Discharge Data Primary Care Provider: Bal Canas Attending Provider: Mariposa Shah Quality VTE Deep Vein Thrombosis/Pulmonary Embolism Present on Admission: No
--- NOTE | 2022-12-12 11:09 | CM.DPC ---
DCP Continued: Late Entry Per nursing staff in rounds, patient should d/c today home with no needs. Patient left prior to being seen by this author due to triaging needs. Per PT note, Pt reports he has no PT needs and based off of yesterday feels confident he can do the stairs at home. Pt declined caregiver training. Previous plan was to d/c home with spouse in POV. CM team will continue to follow as needed. OBINNA Tyler
== END 2022-12-11 11:40 | disposition home or self-care (01) ==
LOC: OR 06:32 → AC 06:34
PROVIDERS: PCP Internal Medicine Hematology & Oncology; Referring Provider Orthopaedic Surgery; Visit Provider Orthopaedic Surgery
PROC: (CPT 27130; principal; 2022-12-09 07:45)
DX: M87.051 Idiopathic aseptic necrosis of right femur (principal); D62 Acute posthemorrhagic anemia
CPT/HCPCS: 27130; 36415; 73502; 76000; 85014; 85018; 97116; 97161; 97165; 97530; 97535; C1776; A9270; C9290; J0171; J0690; J1170; J2405; J2704; J3010